=== PATIENT | female | born 1940 | race Caucasian/White ===

== ENCOUNTER 2018-06-17 21:56 | Observation (INO) ==
[2018-06-17] MEDS ORDERED: RESP: Racemic Epinephrine 2.25% 0.5 ML Neb NEB ONE (22:13)
[2018-06-17] MEDS: Sod Chloride 0.9% Inj 1,000 ML IV.CONT SCH (22:31)
--- NOTE | 2018-06-17 22:31 | XR ---
EXAM DATE: 06/17/2018 10:29 PM EST AGE/SEX: 78 years / Female INDICATIONS: . Cough, shortness of breath. CLINICAL DATA: This is the patient's initial encounter. Patient reports that signs and symptoms have been present for 1 week and indicates a pain score of 0/10. MEDICAL/SURGICAL HISTORY: None. None. COMPARISON: No prior exams available for comparison. FINDINGS: PA and lateral views of the chest demonstrate linear densities in the lingula. Right lung clear. Hear t normal in size the cardiomediastinal contours are unremarkable. Osseous structures are intact. CONCLUSION: Lingular subsegmental atelectasis. Electronically signed by: Sanchez Marquez MD Board Certified Radiologist 06/17/2018 10:30 PM EST
[2018-06-17 22:56] LABS: Chloride 105 meq/L (98-107); Potassium 3.8 meq/L (3.5-5.1); Sodium 137 meq/L (136-145)
[2018-06-17] MEDS ORDERED: RESP: Lidocaine PF 4% 5 ML Neb NEB ONE (22:57)
[2018-06-17 22:58] LABS: Blood Urea Nitrogen 14 mg/dL (7-18); Glucose,Random 121 mg/dL (74-106)
[2018-06-17 22:59] LABS: Albumin 3.6 g/dL (3.4-5.0); Anion Gap 6 meq/L (5-15); Carbon Dioxide 26.3 meq/L (21.0-32.0)
[2018-06-17 23:02] LABS: Alanine Aminotransferase 20 U/L (10-53); Aspartate Aminotransferase 20 U/L (15-37)
[2018-06-17 23:03] LABS: Glomerular Filtration Rate 82 mL/min (>89)
[2018-06-17 23:05] LABS: Alkaline Phosphatase 65 U/L (45-117)
[2018-06-17] MEDS ORDERED: Lidocaine 2%/Epinephrine 1:100,000 Inj 20 ML Vial ONE (23:06)
[2018-06-17 23:07] LABS: Troponin I 0.23 ng/mL (0.02-0.05)
[2018-06-17 23:18] LABS: Baso # (Auto) 0.2 th/mm3 (0.0-0.2); Baso % (Auto) 1.6 % (0.0-2.0); Eos # (Auto) 0.4 th/mm3 (0.0-0.4); Hematocrit 39.8 % (35.0-46.0); Hemoglobin 13.4 gm/dL (11.6-15.3); Lymph # (Auto) 2.5 th/mm3 (1.0-4.8); Lymph % (Auto) 21.4 % (9.0-44.0); Mean Corpuscular HGB Conc 33.8 % (32.0-36.0); Mean Corpuscular Hemoglobin 30.1 pg (27.0-34.0); Mean Platelet Volume 8.8 fL (7.0-11.0); Neut # (Auto) 7.8 th/mm3 (1.8-7.7); Platelet Count 377 th/mm3 (150-450); Red Blood Count 4.47 mil/mm3 (4.00-5.30); Red Cell Distribution Width 12.9 % (11.6-17.2); White Blood Count 11.9 th/mm3 (4.0-11.0)
--- NOTE | 2018-06-17 23:41 | ED ---
HPI General Chief Complaint: Respiratory Symptoms Stated Complaint: Cough x thurs Time Seen by Provider: 06/17/18 22:12 Source: patient Mode of arrival: ambulatory Limitations: no limitations History of Present Illness MD Complaint: Reports cough, sore throat and nasal congestion; Denies fever, rhinorrhea and sinus pain Onset (ago): day(s) (5-7) Duration: constant and progressively worsening Severity: similar to previous episodes Severity scale (1-10): 8 Relieving factors: nothing Exacerbating factors: swallowing and speaking Description of mucous: Denies clear, watery, yellow, green, purulent and bloody Able to tolerate fluids by mouth: Yes Context: Reports recent travel; Denies sick contacts, recent dental work and multiple patients with similar complaints Associated symptoms: Reports voice changes (hoarseness), sore throat, cough and shortness of breath; Denies fever, chills, myalgias, diaphoresis, headache, rhinorrhea, nasal congestion, stiff neck, chest pain, abdominal pain, nausea, vomiting, diarrhea, dysuria, rash, epistaxis and ear pain Treatments prior to arrival: Reports acetaminophen Related Data Home Medications Medication Instructions Recorded Confirmed esomeprazole magnesium [Nexium] 20 mg PO DAILY 06/17/18 06/17/18 Allergies Allergy/AdvReac Type Severity Reaction Status Date / Time ampicillin Allergy Intermediate Rash, Verified 06/17/18 22:13 Localized Sulfa (Sulfonamide Allergy Intermediate Vomiting Verified 06/17/18 22:13 Antibiotics) Review of Systems ROS: all other systems reviewed are negative [facility] Medical History Medical History GERD (gastroesophageal reflux disease) (Acute) Surgical History Surgical History History of tubal ligation (Acute) Hx of cholecystectomy (Acute) Hx of tonsillectomy (Acute) Social History Social History Substance History: No History of Abuse Second Hand Smoke Exposure: No Smoking Status: Never smoker How Often Do You Have a Drink Containing Alcohol: 2 to 3 times a week Recent Travel in [facility] within the Last 8 Weeks: Yes Recent Out of Country Travel within the Last 8 Weeks: No Immunization History Tetanus Immunization: Unsure Exam Narrative Exam Narrative: GENERAL: Well-nourished, well-developed patient. No accessory muscle use mild hoarseness intermittent stridor with intermittent seal bark cough. SKIN: Focused skin assessment warm/dry. HEAD: Normocephalic. EYES: No scleral icterus. No injection or drainage. ENT: Mucous membranes moist airway is patent posterior pharyngeal exam no edema mild erythema no exudative change. NECK: Supple, trachea midline. No JVD or lymphadenopathy. CARDIOVASCULAR: Regular rate and rhythm without murmurs, gallops, or rubs. RESPIRATORY: Breath sounds equal bilaterally. No accessory muscle use. GASTROINTESTINAL: Abdomen soft, non-tender, nondistended. MUSCULOSKELETAL: No cyanosis, or edema. BACK: Nontender without obvious deformity. No CVA tenderness. Course Initial Documented Vital Signs Temperature 98.2 F 06/17/18 22:01 Pulse Rate 93 H 06/17/18 22:01 Respiratory Rate 18 06/17/18 22:01 Blood Pressure 148/70 H 06/17/18 22:01 Pulse Oximetry 96 06/17/18 22:01 Last Documented Vital Signs Temperature 98.2 F 06/17/18 22:01 Pulse Rate 100 H 06/18/18 04:33 Respiratory Rate 20 06/18/18 04:33 Blood Pressure 133/55 L 06/18/18 04:33 Pulse Oximetry 98 06/18/18 05:35 Medical Decision Making [facility] Narrative Medical decision making narrative: 78-year-old female with history of reflux esophagitis presents with progressive laryngitis and intermittent stridor with complaint of difficulty with breathing and talking and painful speech since . No fever no chills no nausea no vomiting no noted wheezing. No orthopnea no PND no chest pain no referred jaw back shoulder arm pain. No soft tissue swelling of the neck or tenderness of the anterior neck to palpation no redness of the soft tissue of the neck or jaw. Symptoms have worsened since this morning. Patient is visiting from [place]. Patient will be in the area for 5 weeks. Patient placed on cardiac technician with continuous pulse oximetry IV access obtain specimens collected and sent for resulting chest x-ray PA and lateral ordered identified to have some streaking atelectasis of the lingula and some narrowing of the airway/steeple sign on PA view. Patient administered maintenance IV fluids racemic epinephrine Decadron. Patient slightly improved but remains symptomatic given nebulized 4% lidocaine with improvement. CBC with automated differential found to be in normal range chemistries found to be in normal range; troponin I identified however to be elevated at 0.23. Repeat troponin I ordered along with EKG patient denies any recent chest pain referred jaw shoulder back extremity pain abdominal pain has some anterior throat pain but no referred neck pain. Patient denies hypertension dyslipidemia tobaccoism diabetes or family history of premature onset heart disease. Patient takes no hormone replacement therapy. Patient identified to have normal renal function. CT soft tissue neck ordered EKG: Normal sinus rhythm rate [address] elevation nonspecific T wave inversion septally in V1 V2 no ST segment depression At 11:45 PM after receiving IV fluids IV Decadron nebulized 4% lidocaine and racemic epinephrine and humidified air patient is symptomatically and clinically improved Patient identified to have elevated troponin on repeat as well as 0.22 patient continues to deny any chest pain or shortness of breath except for when she is having her laryngeal spasm and laryngitis. Patient denies personal history of CAD hypertension dyslipidemia tobaccoism diabetes or family history of premature onset heart disease. Patient is willing to stay for observation due to her stridor but does not believe she has anything from a cardiac standpoint. Discussed case with Dr Dickson who follow/trend troponins but does not want to start heparinization and patient is asymptomatic we will repeat elevated troponin patient has received aspirin. Medical Screen Exam Complete: Yes Emergency Medical Condition: Yes Differential Diagnosis Differential Diagnosis: Viral syndrome, laryngitis, tracheitis, abscess, mass, retropharyngeal abscess, laryngospasm Medical Records no prior visits Lab Data Lab results reviewed: Yes I reviewed the patient's lab results. Result diagrams: 06/17/18 22:00 06/17/18 22:00 Lab Results 06/17/18 06/17/18 06/18/18 Range/Units 22:00 22:00 00:45 CBC w Diff Auto diff final WBC 11.9 H (4.0-11.0) th/mm3 RBC 4.47 (4.00-5.30) mil/mm3 Hgb 13.4 (11.6-15.3) gm/dL Hct 39.8 (35.0-46.0) % MCV 89.0 (80.0-100.0) fL MCH 30.1 (27.0-34.0) pg MCHC 33.8 (32.0-36.0) % RDW 12.9 (11.6-17.2) % Plt Count 377 (150-450) th/mm3 MPV 8.8 (7.0-11.0) fL Neut % (Auto) 66.0 (16.0-70.0) % Lymph % (Auto) 21.4 (9.0-44.0) % [place] % (Auto) 8.0 (0.0-8.0) % Eos % (Auto) 3.0 (0.0-4.0) % Baso % (Auto) 1.6 (0.0-2.0) % Neut # (Auto) 7.8 H (1.8-7.7) th/mm3 Lymph # (Auto) 2.5 (1.0-4.8) th/mm3 [place] # (Auto) 1.0 H (0.0-0.9) th/mm3 Eos # (Auto) 0.4 (0.0-0.4) th/mm3 Baso # (Auto) 0.2 (0.0-0.2) th/mm3 WBC Differential . Differential Comment . Sodium 137 (136-145) meq/L Potassium 3.8 (3.5-5.1) meq/L Chloride 105 (98-107) meq/L Carbon Dioxide 26.3 (21.0-32.0) meq/L Anion Gap 6 (5-15) meq/L BUN 14 (7-18) mg/dL Creatinine 0.69 (0.50-1.00) mg/dL Estimated GFR 82 L (>89) mL/min Random Glucose 121 H (74-106) mg/dL Calcium 9.0 (8.5-10.1) mg/dL Total Bilirubin 0.4 (0.2-1.0) mg/dL AST 20 (15-37) U/L ALT 20 (10-53) U/L Alkaline Phosphatase 65 (45-117) U/L Troponin I 0.23 H 0.22 H (0.02-0.05) ng/mL Total Protein 8.0 (6.4-8.2) g/dL Albumin 3.6 (3.4-5.0) g/dL Imaging Data Radiologist's impression: Chest X-Ray 06/17/18 22:13 CONCLUSION: Lingular subsegmental atelectasis. Soft Tissue Neck CT 06/18/18 00:06 CONCLUSION: 1. Sinus disease. 2. 1.1 cm right thyroid mass. ECG Data EKG Prior to Arrival: No Attestation: I personally reviewed and interpreted this ECG as follows: (EKG: Normal sinus rhythm rate [address] elevation or injury pattern nonspecific T wave inversion septally in V1 V2 without ST segment depression normal axis and intervals) Discharge Plan Discharge Disposition Patient Disposition: ED Admit(ED Internal Use Only) Discharge Condition Condition: Stable Discharge Order Discharge Orders: ED Use Only Admit Order (Routine); Ordered 06/18/18 Ordered By: Jailene Bruno Discharge Details Diagnosis: Laryngitis, acute spasmodic, Stridor, Elevated troponin I level Physicians Team ED Provider: Jailene Bruno Primary Care Provider: Primary Care Earnestine Harris Attending Provider: Jaren Pena Discharge Interventions Interventions: ED Discharge Assessment Last Done: 06/18/18 05:01 Status ED Status: Admitted Observation Patient
--- NOTE | 2018-06-18 01:59 | CT ---
EXAM DATE: 06/18/2018 1:49 AM EST AGE/SEX: 78 years / Female INDICATIONS: Evaluate for mass. CLINICAL DATA: This is the patient's initial encounter. Patient reports that signs and symptoms have been present for 1 day and indicates a pain score of 0/10. MEDICAL/SURGICAL HISTORY: Gastroesophageal reflux disease. Tonsillectomy. RADIATION DOSE: 9.91 CTDI (mGy) COMPARISON: No prior exams available for comparison. TECHNIQUE: Helical acquisition was performed using a multirow detector CT scanner during the adminis tration of 100 ml Omnipaque 350 (iohexol) nonionic water-soluble contrast as a single exam dose. Us ing automated exposure control and adjustment of the mA and/or kV according to patient size, radiatio n dose was kept as low as reasonably achievable to obtain optimal diagnostic quality images. DICOM f ormat image data is available electronically for review and comparison. FINDINGS: Nasopharynx: The nasopharyngeal airway has a normal configuration. No mucosal thickening or mass is seen. Oropharynx: The intrinsic muscles of the tongue are symmetric. The tonsillar pillars are intact. T he prevertebral soft tissues are not thickened. Larynx: The supraglottic, glottic, and infraglottic structures are intact. Parapharyngeal: The parapharyngeal space is intact. Salivary Glands: The parotid and submandibular glands are intact. Lymph Nodes: No enlarged or necrotic-appearing nodes. Normal-sized nodes are seen throughout the nec k. Thyroid: There is a 1.1 cm low-density mass at the right lobe of the thyroid. Bones: Unremarkable. Sinuses: There is bilateral frontal, and bilateral left greater than right posterior ethmoid sinus, and mild bilateral sphenoid sinus disease. The maxillary sinuses appear fairly clear. CONCLUSION: 1. Sinus disease. 2. 1.1 cm right thyroid mass. Electronically signed by: Kashmir Sen MD Board Certified Radiologist 06/18/2018 1:58 AM EST
[2018-06-18] MEDS ORDERED: Bisacodyl 10 MG Supp RECTAL PRN (02:34)
[2018-06-18] MEDS ORDERED: Acetaminophen 325 MG Tablet PO PRN ×2 (02:34→15:05)
[2018-06-18] MEDS: Enoxaparin Inj 40 MG/0.4 ML Syringe SQ SCH (04:27)
[2018-06-18] MEDS: Senna/Docusate Sodium 8.6/50 MG Tablet PO SCH ×2 (08:51→21:07)
[2018-06-18] MEDS: Sod Chloride 0.9% Inj 1,000 ML IV.CONT SCH ×2 (10:33→18:54)
[2018-06-18] MEDS ORDERED: RESP: Racemic Epinephrine 2.25% 0.5 ML Neb NEB ONE (11:00)
--- NOTE | 2018-06-18 12:46 | ECG ---
Date Performed: 06/17/2018 Time Performed: 23:38:25 PTAGE: 78 years EKG: Sinus rhythm NONSPECIFIC T-WAVE ABNORMALITY ABNORMAL ECG NO PREVIOUS TRACING DOCTOR: Anabell Taylor Interpretating Date/Time 06/18/2018 12:45:01
--- NOTE | 2018-06-18 12:54 | P.HPIM ---
History of Present Illness Primary Care Physician: No Primary Care Physician History of Present Illness: 78-year-old female with a history of GERD who presents with a 2-day history of worsening intermittent will be breathing in. History is provided by the patient her condition is exacerbated by talking. history is limited by being obtained through writing and whispering. Patient says that she had an upper respiratory illness which was getting better, however she subsequently got a cough and episodes of difficulty breathing in. She reports she has had similar symptoms in the past. She denies any chest pain. She denies any shortness of breath when she is not having these episodes. She denies any fevers or chills, and indicates that she has gotten better from her previous cold Review of Systems All other systems reviewed negative except as stated in [facility]PI [facility] - History History Provided By: Patient - Medical History Medical History: Medical History (Last Reviewed 06/18/18 @ 12:47 by Jaren Pena MD) GERD (gastroesophageal reflux disease) - Surgical History Surgical History: Surgical History (Last Reviewed 06/18/18 @ 12:47 by Jaren Pena MD) History of tubal ligation Hx of cholecystectomy Hx of tonsillectomy - Family History Family History: Family History (Last Updated 06/18/18 @ 12:47 by Jaren Pena MD) Other Family history unobtainable due to patient's condition - Tobacco History Second Hand Smoke Exposure: No Tobacco Use In Past 30 Days: No Smoking Status: Never smoker - Alcohol History How Often Do You Have a Drink Containing Alcohol: 2 to 3 times a week - Substance Use History Substance History: No History of Abuse - Travel History Recent Travel in the [place] Within the Last 8 Weeks: Yes Recent Travel Out of the Country Within the Last 8 Weeks: No - Immunization History Tetanus Immunization: Unsure Medications and Allergies Active Medications: Active Medications Acetaminophen (Tylenol) 650 mg PO Q4H PRN PRN Reason: Temp > 100.4 Al Hydroxide/Mg Hydroxide (Milk Of Magnesia Liq) 30 ml PO Q12H PRN PRN Reason: Mild Constipation Albuterol (Duoneb Neb (Prn)) 1 ampul NEB Q4HR NEB PRN PRN Reason: ALLERGIC REACTION Bisacodyl (Dulcolax Supp) 10 mg RECTAL DAILY PRN PRN Reason: SEVERE CONSITIPATION Enoxaparin Sodium (Lovenox Inj) 40 mg SQ Q24H [facility] Last Admin: 06/18/18 04:27 Dose: Not Given Sodium Chloride (Ns Inj) 1,000 mls @ 100 mls/hr IV.CONT .Q10H [facility] Last Admin: 06/18/18 10:33 Dose: 100 mls/hr Lactulose (Lactulose Liq) 30 ml PO DAILY PRN PRN Reason: SEVERE CONSITIPATION Ondansetron HCl (Zofran Inj) 4 mg IV.PUSH Q6H PRN PRN Reason: NAUSEA OR VOMITING Senna/Docusate Sodium (Clarisa-Colace) 1 tab PO BID [facility] Last Admin: 06/18/18 08:51 Dose: 1 tab Sennosides (Senokot) 17.2 mg PO Q12H PRN PRN Reason: Moderate Constipation Sodium Chloride (Ns Flush) 2 ml IV.FLUSH BID [facility] Last Admin: 06/18/18 08:51 Dose: Not Given Sodium Chloride (Ns Flush) 2 ml IV.FLUSH PRN PRN PRN Reason: FLUSH AFTER USING IV ACCESS Allergies Allergy/AdvReac Type Severity Reaction Status Date / Time ampicillin Allergy Intermediate Rash, Verified 06/17/18 22:13 Localized Sulfa (Sulfonamide Allergy Intermediate Vomiting Verified 06/17/18 22:13 Antibiotics) Home Medications Medication Instructions Recorded Confirmed Type esomeprazole magnesium [Nexium] 20 mg PO DAILY 06/17/18 06/17/18 History Exam Vital signs: Vital Signs 06/17/18 22:01 06/17/18 22:30 06/17/18 22:37 Temperature 98.2 F Pulse Rate 93 H 79 97 H Respiratory Rate 18 18 20 Blood Pressure 148/70 H Pulse Oximetry 96 98 06/17/18 22:52 06/17/18 23:11 06/18/18 00:24 Temperature Pulse Rate 88 99 H 98 H Respiratory Rate 18 20 Blood Pressure 130/60 Pulse Oximetry 97 06/18/18 02:32 06/18/18 04:33 06/18/18 05:35 Temperature Pulse Rate 104 H 100 H Respiratory Rate 20 20 Blood Pressure 143/66 H 133/55 L Pulse Oximetry 97 98 98 06/18/18 06:01 06/18/18 08:00 06/18/18 11:34 Temperature 96.6 F L 97.8 F Pulse Rate 92 H 103 H 91 H Respiratory Rate 18 18 Blood Pressure 136/66 138/71 Pulse Oximetry 93 L 95 Intake & Output 06/17/18 06/18/18 06/18/18 18:59 06:59 18:59 Intake Total 700 / 700 740 / 740 Output Total 200 / 200 Balance 700 / 700 540 / 540 Weight 54.6 kg Intake: IV 700 / 700 300 / 300 NS Inj 1,000 ML @ 100 mls/hr IV 700 / 700 300 / 300 .CONT .Q10H NATALIE Rx#:[id number] Oral 440 / 440 Output: Urine 200 / 200 Other: Weight On Admission 53.3 kg Narrative: GENERAL: Patient sitting up in bed. Appears comfortable. Patient initially talking without difficulty, however shortly after speaking has an episode where she appears panicked and with difficulty breathing in. This resolves however, as this is exacerbated by her talking. SKIN: Warm and dry. HEAD: Atraumatic. Normocephalic. EYES: Pupils equal and round. No scleral icterus. No injection or drainage. ENT: No nasal bleeding or discharge. Mucous membranes pink and moist. NECK: Trachea midline. No JVD. CARDIOVASCULAR: Regular rate and rhythm. RESPIRATORY: No accessory muscle use. Clear to auscultation. Breath sounds equal bilaterally. Patient with audible upper airway sounds when she has her episodes of laryngeal spasm versus vocal cord dysfunction. GASTROINTESTINAL: Abdomen soft, non-tender, nondistended. Hepatic and splenic margins not palpable. MUSCULOSKELETAL: Extremities without clubbing, cyanosis, or edema. No obvious deformities. NEUROLOGICAL: Awake and alert. No obvious cranial nerve deficits. Motor grossly within normal limits. Five out of 5 muscle strength in the arms and legs. Normal speech. PSYCHIATRIC: Appropriate mood and affect; insight and judgment normal. Results - Labs CBC & Chem 7: 06/17/18 22:00 06/17/18 22:00 Labs: Short CBC 06/17/18 Range/Units 22:00 WBC 11.9 H (4.0-11.0) th/mm3 Hgb 13.4 (11.6-15.3) gm/dL Hct 39.8 (35.0-46.0) % Plt Count 377 (150-450) th/mm3 BMP 06/17/18 22:00 Sodium 137 Potassium 3.8 Chloride 105 Carbon Dioxide 26.3 BUN 14 Creatinine 0.69 Calcium 9.0 Cardiac Enzymes 06/17/18 06/18/18 06/18/18 Range/Units 22:00 00:45 08:02 Troponin I 0.23 H 0.22 H 0.09 H D (0.02-0.05) ng/mL Liver Function 06/17/18 Range/Units 22:00 Total Bilirubin 0.4 (0.2-1.0) mg/dL AST 20 (15-37) U/L ALT 20 (10-53) U/L Alkaline Phosphatase 65 (45-117) U/L Albumin 3.6 (3.4-5.0) g/dL - Imaging Impressions Chest X-Ray 06/17/18 22:13 CONCLUSION: Lingular subsegmental atelectasis. Soft Tissue Neck CT 06/18/18 00:06 CONCLUSION: 1. Sinus disease. 2. 1.1 cm right thyroid mass. Caprini VTE Risk Assessment Caprini VTE Risk Assessment: Moderate/High Risk (score >= 2) Caprini Risk Assessment Model: Point Value = 1 Point Value = 2 Point Value = 3 Point Value = 5 Age 41-60 Minor surgery BMI > 25 kg/m2 Swollen legs Varicose veins or History of unexplained or recurrent spontaneous Oral contraceptives or hormone replacement Sepsis (< 1 month) Serious lung disease, including pneumonia (< 1 month) Abnormal pulmonary function Acute myocardial infarction Congestive heart failure (< 1 month) History of inflammatory bowel disease Medical patient at bed rest Age 61-74 Arthroscopic surgery Major open surgery (> 45 min) Laparoscopic surgery (> 45 min) Malignancy Confined to bed (> 72 hours) Immobilizing plaster cast Central venous access Age >= 75 History of VTE Family history of VTE Factor V Leiden Prothrombin [id number] Lupus anticoagulant Anticardiolipin antibodies Elevated serum homocysteine Heparin-induced thrombocytopenia Other congenital or acquired thrombophilia Stroke (< 1 month) Elective arthroplasty Hip, pelvis, or leg fracture Acute spinal cord injury (< 1 month) Prophylaxis Regimen: Total Risk Factor Score Risk Level Prophylaxis Regimen 0-1 Low Early ambulation 2 Moderate Order ONE of the following: *Sequential Compression Device (SCD) *Heparin 5000 units SQ BID 3-4 Higher Order ONE of the following medications: *Heparin 5000 units SQ TID *Enoxaparin/Lovenox 40 mg SQ daily (WT < 150 kg, CrCl > 30 mL/min) *Enoxaparin/Lovenox 30 mg SQ daily (WT < 150 kg, CrCl > 10-29 mL/min) *Enoxaparin/Lovenox 30 mg SQ BID (WT < 150 kg, CrCl > 30 mL/min) AND/OR *Sequential Compression Device (SCD) 5 or more Highest Order ONE of the following medications: *Heparin 5000 units SQ TID (Preferred with Epidurals) *Enoxaparin/Lovenox 40 mg SQ daily (WT < 150 kg, CrCl > 30 mL/min) *Enoxaparin/Lovenox 30 mg SQ daily (WT < 150 kg, CrCl > 10-29 mL/min) *Enoxaparin/Lovenox 30 mg SQ BID (WT < 150 kg, CrCl > 30 mL/min) AND *Sequential Compression Device (SCD) Assessment and Plan - Plan //Suspected laryngeal spasm versus vocal cord dysfunction -Following recent upper airway infection which was resolved. -Exacerbated by coughing and talking. -CT with incidental thyroid nodule, however no focal cord or laryngeal inflammation noted on CT scan. -Improved with IV steroids and racemic epinephrine neb. -We will also give IV PPI as reflux can exacerbate this. -This is life-threatening, as patient is already had troponin elevation which is demand related secondary to near suffocation. -We will start on Singulair, Claritin, Levaquin. Consult to ENT. Close monitoring. Appreciate assistance. //Troponin elevation up to 0.23. -This is likely demand related secondary to patient's episodes of laryngeal spasm. EKG with nonspecific T wave abnormality. Patient denies any chest pain. //Incidental finding of 1.1 cm thyroid nodule on imaging. This will need to be followed by ENT as outpatient. Discussed Condition With: Patient, nurse. Call back pending from ENT. H&P: Quality - VTE Deep Vein Thrombosis/Pulmonary Embolism Present on Admission: No
[2018-06-18] MEDS ORDERED: Montelukast 10 MG Tablet PO ONE (13:00)
[2018-06-18] MEDS ORDERED: Pantoprazole Inj 40 MG Vial IV.PUSH SCH (13:00)
[2018-06-18] MEDS: Loratadine 10 MG Tablet PO SCH (13:37)
[2018-06-18] MEDS: Benzocaine/Menthol 15 MG/3.6 MG SF Lozenge BUCCAL PRN (13:38)
[2018-06-18] MEDS: MethylPREDNISolone Sod Succinate Inj 40 MG/ML Vial IV.PUSH SCH ×2 (13:58→21:07)
[2018-06-18] MEDS ORDERED: Dextrose 50% in Water 50 ML Vial IV.PUSH PRN (15:03)
[2018-06-18] MEDS ORDERED: RESP: Racemic Epinephrine 2.25% 0.5 ML Neb NEB PRN (15:04)
[2018-06-18 15:11] LABS: ABG PCO2 36 mmHg (38-42); ABG PO2 65 mmHg (61-120)
--- NOTE | 2018-06-18 15:23 | P.CONCC ---
History of Present Illness Service: Critical care medicine Consult date: 06/18/18 Requesting Physician: Jaren Pena Reason for Consult: Stridor Primary Care Provider: No Primary Care Physician Chief Complaint: Shortness of breath History of Present Illness: This is a 78-year-old female. Admission 06/17/2018. Date of consultation 06/18/2018. Past medical history includes gastroesophageal disease. Patient states she had episodic episodes of "stridor" since 1958. These usually preclude or during an upper respiratory infection process. According to her, these usually resolve after one episode in do not continue.. She presents with a 2-day history of difficulty breathing. Upon admission denied any chest pain. During his admission, patient initially received dexamethasone 8 mg x1 and racemic epinephrine and was started on pulmonary toilet. Since admission, patient received 2 racemic epinephrine aerosols and additional dose of dexamethasone 8 mg x1. She is feeling fine but during these episodes she states she has difficulty breathing and. CT of the neck was performed which was essentially negative except for a 1.1 cm thyroid mass. Upon my examination , patient was phonating in a soft voice but adequate. Typically she has a sore throat. Denies difficulty breathing currently. Due to ongoing airway issue we are going to transfer the main campus for observation Review of Systems Constitutional: Reports body ache(s), Reports fatigue, Reports fever(s), Denies anorexia, Denies chills, Denies headache(s) Eyes: Denies blurry vision, Denies bulging eyes, Denies floaters, Denies irritation Ears, Nose, Mouth, and Throat: Reports post nasal drip, Reports sore throat, Reports throat swelling, Denies abnormal hearing, Denies bleeding gums, Denies dizziness, Denies lip swelling, Denies mouth lesions, Denies nasal obstruction, Denies pain with swallowing, Denies poor balance, Denies sinus pressure, Denies tongue swelling Cardiovascular: Denies chest pain, Denies chest pain at rest Respiratory: Reports cough, Denies change in phlegm color, Denies chest congestion, Denies coughing up blood, Denies pain on inspiration Gastrointestinal: Denies abdominal pain, Denies bloating, Denies nausea, Denies vomiting Genitourinary: Denies urinary urgency, Denies vaginal discharge Musculoskeletal: Denies back pain, Denies stiffness Skin/Breast: Denies redness, Denies rash Neurologic: Denies lack of coordination, Denies tremor(s) Psychiatric: Reports anxiety, Denies confusion, Denies depression Endocrine: Denies cold intolerance, Denies excessive sweating Hematologic/Lymphatic: Denies easy bleeding Allergic/Immunologic: Denies GI upset with certain foods PMFSH - History History Provided By: Patient - Medical History Medical History: Medical History (Last Reviewed 06/18/18 @ 15:18 by Yoel Ruby MD) GERD (gastroesophageal reflux disease) - Surgical History Surgical History: Surgical History (Last Reviewed 06/18/18 @ 15:18 by Yoel Ruby MD) History of tubal ligation Hx of cholecystectomy Hx of tonsillectomy - Family History Family History: Family History (Last Updated 06/18/18 @ 15:18 by Yoel Ruby MD) Other Family history unremarkable - Tobacco History Second Hand Smoke Exposure: No Tobacco Use In Past 30 Days: No Smoking Status: Never smoker - Alcohol History How Often Do You Have a Drink Containing Alcohol: 2 to 3 times a week - Substance Use History Substance History: No History of Abuse - Travel History Recent Travel in the [place] Within the Last 8 Weeks: Yes Recent Travel Out of the Country Within the Last 8 Weeks: No - Immunization History Tetanus Immunization: Unsure Medications and Allergies Active Medications: Active Medications Acetaminophen (Tylenol) 650 mg PO Q6H PRN PRN Reason: Temp > 100.4 Al Hydroxide/Mg Hydroxide (Milk Of Magndixon Liq) 30 ml PO Q12H PRN PRN Reason: Mild Constipation Albuterol (Albuterol Neb (Prn)) 2.5 mg NEB Q2HR NEB PRN PRN Reason: DYSPNEA Albuterol (Duoneb Neb (Prn)) 1 ampul NEB Q4HR NEB NATALIE Benzocaine/Menthol (Cepacol Max Strength) 1 lozenge BUCCAL Q2H PRN PRN Reason: COUGH Last Admin: 06/18/18 13:38 Dose: 1 lozenge Bisacodyl (Dulcolax Supp) 10 mg RECTAL DAILY PRN PRN Reason: SEVERE CONSITIPATION Dextrose (D50w Vial) 50 ml IV.PUSH UNSCH PRN PRN Reason: PER HYPOGLYCEMIA PROTOCOL Enoxaparin Sodium (Lovenox Inj) 40 mg SQ Q24H NATALIE Last Admin: 06/18/18 04:27 Dose: Not Given Epinephrine (Racepinephrine 2.25% Neb) 0.5 ml NEB Q3H PRN PRN Reason: STRIDOR Famotidine (Pepcid Pf Inj) 20 mg IV.PUSH Q12HR NATALIE Glucagon (Glucagon Inj) 1 mg OTHER PRN PRN PRN Reason: for Hypoglycemia Protocol Sodium Chloride (Ns Inj) 1,000 mls @ 100 mls/hr IV.CONT .Q10H [facility] Last Admin: 06/18/18 10:33 Dose: 100 mls/hr Levofloxacin/Dextrose (Levaquin 750 Mg Premix Inj) 150 mls @ 100 mls/hr IV.SIG Q24H [facility] Last Admin: 06/18/18 13:37 Dose: 100 mls/hr Cefepime HCl 2,000 mg/ Sodium (Chloride) 100 mls @ 200 mls/hr IV.SIG Q8H [facility] Last Admin: 06/18/18 14:05 Dose: 200 mls/hr Insulin Aspart (Novolog Insulin Correctional Sugar Inj) 0 unit SQ Q6HR [facility]; Protocol Lactulose (Lactulose Liq) 30 ml PO DAILY PRN PRN Reason: SEVERE CONSITIPATION Loratadine (Claritin) 10 mg PO DAILY [facility] Last Admin: 06/18/18 13:37 Dose: 10 mg Methylprednisolone Sodium Succinate (Solumedrol Inj) 40 mg IV.PUSH Q8HR [facility] Last Admin: 06/18/18 13:58 Dose: 40 mg Ondansetron HCl (Zofran Inj) 4 mg IV.PUSH Q6H PRN PRN Reason: NAUSEA OR VOMITING Senna/Docusate Sodium (Clarisa-Colace) 1 tab PO BID [facility] Last Admin: 06/18/18 08:51 Dose: 1 tab Sennosides (Senokot) 17.2 mg PO Q12H PRN PRN Reason: Moderate Constipation Sodium Chloride (Ns Flush) 2 ml IV.FLUSH BID [facility] Last Admin: 06/18/18 08:51 Dose: Not Given Sodium Chloride (Ns Flush) 2 ml IV.FLUSH PRN PRN PRN Reason: FLUSH AFTER USING IV ACCESS Allergies Allergy/AdvReac Type Severity Reaction Status Date / Time ampicillin Allergy Intermediate Rash, Verified 06/17/18 22:13 Localized Sulfa (Sulfonamide Allergy Intermediate Vomiting Verified 06/17/18 22:13 Antibiotics) Home Medications Medication Instructions Recorded Confirmed Type esomeprazole magnesium [Nexium] 20 mg PO DAILY 06/17/18 06/17/18 History Physical Exam Vital signs: Vital Signs 06/17/18 22:01 06/17/18 22:30 06/17/18 22:37 Temperature 98.2 F Pulse Rate 93 H 79 97 H Respiratory Rate 18 18 20 Blood Pressure 148/70 H Pulse Oximetry 96 98 06/17/18 22:52 06/17/18 23:11 06/18/18 00:24 Temperature Pulse Rate 88 99 H 98 H Respiratory Rate 18 20 Blood Pressure 130/60 Pulse Oximetry 97 06/18/18 02:32 06/18/18 04:33 06/18/18 05:35 Temperature Pulse Rate 104 H 100 H Respiratory Rate 20 20 Blood Pressure 143/66 H 133/55 L Pulse Oximetry 97 98 98 06/18/18 06:01 06/18/18 08:00 06/18/18 11:34 Temperature 96.6 F L 97.8 F Pulse Rate 92 H 103 H 91 H Respiratory Rate 18 22 18 Blood Pressure 136/66 138/71 Pulse Oximetry 93 L 95 06/18/18 12:00 06/18/18 13:33 06/18/18 13:50 Temperature 97.1 F L Pulse Rate 92 H 89 Respiratory Rate 21 18 Blood Pressure Pulse Oximetry 95 Intake & Output 06/17/18 06/18/18 06/18/18 18:59 06:59 18:59 Intake Total 700 / 700 980 / 980 Output Total 400 / 400 Balance 700 / 700 580 / 580 Weight 54.6 kg Intake: IV 700 / 700 300 / 300 NS Inj 1,000 ML @ 100 mls/hr IV 700 / 700 300 / 300 .CONT .Q10H [facility] Rx#:[id number] Oral 680 / 680 Output: Urine 400 / 400 Other: Weight On Admission 53.3 kg - Constitutional no acute distress - Routine HEENT Exam Head: Present: normocephalic, atraumatic Eye: Present: EOMI, PERRL, normal accommodation ENT: Present: mucous membranes moist. Absent: sinus tenderness - Routine Neck Exam Present: supple, full ROM, thyromegaly, trachea midline. Absent: carotid bruit , tenderness, swelling, tracheal deviation - Routine Respiratory Exam Present: CTA bilaterally. Absent: accessory muscle use - Routine Cardiovascular Exam Present: RRR, S1, S2. Absent: murmur - Routine Abdominal Exam Present: soft, normoactive bowel sounds - Routine Exam Patient deferred: external exam, groin exam, perineal exam - Routine Extremities Exam Absent: cyanosis, clubbing, edema - Routine Skin Exam Present: intact - Routine Neurological Exam Present: alert, oriented X3, CN II-XII intact. Absent: sensory deficit, motor deficit - Detailed Neurological Exam: Coma Scale Eye Opening: Spontaneous Verbal Response: Oriented Motor Response: Obey commands Alan Coma Scale Total: 15 - Routine Psychiatric Exam Present: normal affect Septic Shock Reassessment Septic shock perfusion: reassessment completed Assessment and Plan - Assessment and Plan Plan: Neuro/Psych: Acetaminophen 650 p.o. every 6 hours as needed fever Hydrocodone/acetaminophen 5/325 1 tablet every 4 hours as needed 1-5 Morphine sulfate 2 mg IV every 2 hours as needed pain 6 - 10 CV: Elevated troponin Will start on aspirin 81 mg daily. 2D echocardiogram ordered. Noted troponin is downward trending. Resp: Stridor Sore throat Chest x-ray revealed bilateral lower lobe atelectasis CT neck revealed right thyroid mass 1.1 cm otherwise negative. ENT evaluation Continues methylprednisolone succinate 40 mg IV every 12 hours Patient has scheduled loratadine 10 mg daily GI: Gastro esophageal reflux disease On omeprazole 20 mg daily home. We will place on famotidine 20 mg IV twice daily here Clear liquid diet Docusate sodium/senna 1 tablet twice daily for bowel regimen : No indication for Villareal catheter Endo: 1.1 cm thyroid mass Check TSH/free T4 Sliding scale insulin with Accu-Cheks to maintain euglycemia every 6 hours while on steroids Renal: Creatinine currently within normal limits Monitor urine output Accurate I's and O's Heme: Leukocytosis No indication for transfusion of blood products at this time. Monitor CBC daily. Follow trends. ID: URI Strep a negative Check respiratory viral panel Currently on levofloxacin FEN: Replace electrolytes as clinically indicated MSK: PT evaluate and treat Access -Utilize peripheral IV. Central line if indicated Prophylaxis -GI -famotidine -DVT -SCD/enoxaparin Level 3 consult. Due to airway issues will transfer to [facility] for further closer observation. ENT consult noted. Await recommendations.
[2018-06-18] MEDS ORDERED: Magnesium Sulfate Inj 2 GM in Sodium Chlor 0.9% Inj 96 ML IV.SIG PRN (15:27)
[2018-06-18] MEDS ORDERED: Potassium Phosphate Inj 30 MMOL in Sodium Chlor 0.9% Inj 250 ML IV.SIG PRN (15:27)
[2018-06-18] MEDS ORDERED: Sodium Phosphate Inj 30 MMOL in Sodium Chlor 0.9% Inj 250 ML IV.SIG PRN (15:27)
[2018-06-18] MEDS ORDERED: Magnesium Sulfate Inj 4 GM in Sodium Chlor 0.9% Inj 92 ML IV.SIG PRN (15:27)
[2018-06-18] MEDS ORDERED: Potassium Chloride 25 MEQ Effervescent Tablet PO PRN (15:27)
[2018-06-18] MEDS ORDERED: Magnesium Oxide 400 MG Tablet PO PRN (15:27)
[2018-06-18] MEDS ORDERED: Potassium Chlor 20 mEq Premix 20 MEQ/100 ML PIGGYBACK IV.SIG PRN ×2 (15:27)
[2018-06-18] MEDS ORDERED: Potassium Chlor 40 mEq Premix 40 MEQ/100 ML PIGGYBACK IV.SIG PRN ×2 (15:27)
[2018-06-18] MEDS ORDERED: Potassium Phosphate 500 MG Soluble Tablet PO PRN ×2 (15:27)
[2018-06-18 15:54] LABS: Thyroid Stimulating Hormone 0.396 uIU/mL (0.358-3.740)
[2018-06-18 17:47] LABS: Free T4 (Free Thyroxine) 0.96 ng/dL (0.76-1.46)
[2018-06-18] MEDS: Insulin NovoLOG Aspart Correctional Sugar Inj SQ SCH (18:51)
[2018-06-18] MEDS: Famotidine PF Inj 20 MG/2 ML Vial IV.PUSH SCH (21:06)
[2018-06-19] MEDS: Insulin NovoLOG Aspart Correctional Sugar Inj SQ SCH ×4 (00:52→17:39)
[2018-06-19] MEDS: Enoxaparin Inj 40 MG/0.4 ML Syringe SQ SCH (02:45)
[2018-06-19 03:49] LABS: Baso % (Auto) 0.2 % (0.0-2.0); Hematocrit 39.6 % (35.0-46.0); Hemoglobin 13.4 gm/dL (11.6-15.3); Lymph # (Auto) 1.2 th/mm3 (1.0-4.8); Lymph % (Auto) 8.4 % (9.0-44.0); Mean Corpuscular HGB Conc 33.9 % (32.0-36.0); Mean Corpuscular Hemoglobin 30.9 pg (27.0-34.0); Mean Corpuscular Volume 91.2 fL (80.0-100.0); Mean Platelet Volume 8.2 fL (7.0-11.0); Mono # (Auto) 0.6 th/mm3 (0.0-0.9); Mono % (Auto) 4.3 % (0.0-8.0); Neut # (Auto) 12.5 th/mm3 (1.8-7.7); Neut % (Auto) 87.1 % (16.0-70.0); Platelet Count 363 th/mm3 (150-450); Red Blood Count 4.34 mil/mm3 (4.00-5.30); Red Cell Distribution Width 14.1 % (11.6-17.2); White Blood Count 14.4 th/mm3 (4.0-11.0)
[2018-06-19 03:59] LABS: Activated Partial Thrombo Time 27.3 sec (23.4-31.7); Prothrombin Time 10.2 sec (9.8-11.6)
[2018-06-19 04:20] LABS: Anion Gap 9 meq/L (5-15); Blood Urea Nitrogen 14 mg/dL (7-18); Calcium 8.6 mg/dL (8.5-10.1); Carbon Dioxide 22.9 meq/L (21.0-32.0); Chloride 107 meq/L (98-107); Glomerular Filtration Rate Greater Than 89 mL/min (>89); Glucose,Random 141 mg/dL (74-106); Magnesium 2.1 mg/dL (1.5-2.5); Phosphorus 2.5 mg/dL (2.5-4.9); Potassium 3.6 meq/L (3.5-5.1); Sodium 139 meq/L (136-145)
[2018-06-19] MEDS: Sod Chloride 0.9% Inj 1,000 ML IV.CONT SCH ×2 (04:20→14:26)
--- NOTE | 2018-06-19 04:44 | XR ---
EXAM DATE: 06/19/2018 4:29 AM EST AGE/SEX: 78 years / Female INDICATIONS: Respiratory failure. CLINICAL DATA: This is the patient's subsequent encounter. Patient reports that signs and symptoms h ave been present for 3 days and indicates a pain score of Nonresponsive. MEDICAL/SURGICAL HISTORY: None. None. COMPARISON: None. FINDINGS: A single AP view of the chest demonstrates the lungs to be symmetrically aerated without evidence of mass, infiltrate or effusion. The cardiomediastinal contours are unremarkable. Osseous structures a re intact. CONCLUSION: No acute cardiopulmonary disease. Electronically signed by: Jonathon Parrish MD Board Certified Radiologist 06/19/2018 4:43 AM EST
[2018-06-19] MEDS: MethylPREDNISolone Sod Succinate Inj 40 MG/ML Vial IV.PUSH SCH (05:34)
--- NOTE | 2018-06-19 08:26 | P.PNCC ---
Subjective Subjective Remarks/Hospital Course: This is a 78-year-old female. Admission 06/17/2018. Date of consultation 06/18/2018. Past medical history includes gastroesophageal disease. Patient states she had episodic episodes of "stridor" since 1958. These usually preclude or during an upper respiratory infection process. According to her, these usually resolve after one episode in do not continue.. She presents with a 2-day history of difficulty breathing. Upon admission denied any chest pain. During his admission, patient initially received dexamethasone 8 mg x1 and racemic epinephrine and was started on pulmonary toilet. Since admission, patient received 2 racemic epinephrine aerosols and additional dose of dexamethasone 8 mg x1. She is feeling fine but during these episodes she states she has difficulty breathing and. CT of the neck was performed which was essentially negative except for a 1.1 cm thyroid mass. Upon my examination , patient was phonating in a soft voice but adequate. Typically she has a sore throat. Denies difficulty breathing currently. Due to ongoing airway issue we are going to transfer the main campus for observation Subjective 06/19: 2 episodes of "choking" overnight. She awoke with these episodes. Patient 's voice is much improved. There is no muffling. He does not soft. There is no stridor on auscultation on deep expiration. Her lungs are essentially clear. Objective Vital Signs / I&O: Vital Signs 06/18/18 10:56 06/18/18 11:00 06/18/18 11:34 Temperature Pulse Rate 86 83 91 H Respiratory Rate 18 Blood Pressure Pulse Oximetry 06/18/18 12:00 06/18/18 13:00 06/18/18 13:33 Temperature 97.1 F L Pulse Rate 84 89 89 Respiratory Rate 21 18 Blood Pressure Pulse Oximetry 06/18/18 13:50 06/18/18 14:00 06/18/18 15:00 Temperature Pulse Rate 129 H 101 H Respiratory Rate Blood Pressure Pulse Oximetry 95 06/18/18 16:00 06/18/18 16:35 06/18/18 17:00 Temperature 98.5 F Pulse Rate 88 111 H 103 H Respiratory Rate 21 Blood Pressure 136/63 Pulse Oximetry 95 06/18/18 17:56 06/18/18 18:37 06/18/18 18:38 Temperature Pulse Rate 123 H 99 H Respiratory Rate 18 Blood Pressure 139/71 Pulse Oximetry 06/18/18 19:00 06/18/18 20:00 06/18/18 21:00 Temperature 98.3 F Pulse Rate 93 H 71 Respiratory Rate 25 H 22 Blood Pressure Pulse Oximetry 92 L 96 97 06/18/18 21:10 06/18/18 22:00 06/18/18 23:00 Temperature Pulse Rate 82 67 66 Respiratory Rate 32 H 17 18 Blood Pressure 141/95 H Pulse Oximetry 99 93 L 91 L 06/18/18 23:51 06/19/18 00:00 06/19/18 00:28 Temperature 98.8 F Pulse Rate 114 H 89 82 Respiratory Rate 22 23 16 Blood Pressure 142/81 H Pulse Oximetry 98 96 98 06/19/18 01:00 06/19/18 02:00 06/19/18 02:14 Temperature Pulse Rate 77 98 H 84 Respiratory Rate 20 23 26 H Blood Pressure Pulse Oximetry 90 L 06/19/18 03:00 06/19/18 03:51 06/19/18 04:00 Temperature 98.4 F Pulse Rate 74 73 72 Respiratory Rate 33 H 35 H 37 H Blood Pressure 131/62 Pulse Oximetry 06/19/18 04:58 06/19/18 05:00 06/19/18 06:00 Temperature Pulse Rate 106 H 98 H 97 H Respiratory Rate 22 23 23 Blood Pressure Pulse Oximetry Intake & Output 06/18/18 06/19/18 06/19/18 18:59 06:59 18:59 Intake Total 1230 / 1230 920 / 920 Output Total 400 / 400 Balance 830 / 830 920 / 920 Weight 54.5 kg Intake: IV 550 / 550 200 / 200 NS Inj 1,000 ML @ 100 mls/hr IV 300 / 300 .CONT .Q10H NATALIE Rx#:[id number] Maxipime Inj 2,000 MG In NS Inj 100 / 100 200 / 200 100 ML @ 200 mls/hr IV.SIG Q8H NATALIE Rx#:[id number] Levaquin 750 mg Premix Inj 150 150 / 150 ML @ 100 mls/hr IV.SIG Q24H NATALIE Rx#:[id number] Oral 680 / 680 720 / 720 Output: Urine 400 / 400 Other: # Voids 2 Result Diagrams: 06/19/18 02:45 06/19/18 02:45 Other Results: Microbiology 06/17/18 22:40 Throat Group A Streptococcus Screen (RIKKI) - Final Imaging: Chest X-Ray 06/17/18 22:13 CONCLUSION: Lingular subsegmental atelectasis. Soft Tissue Neck CT 06/18/18 00:06 CONCLUSION: 1. Sinus disease. 2. 1.1 cm right thyroid mass. Chest X-Ray 06/19/18 06:00 CONCLUSION: No acute cardiopulmonary disease. Objective Remarks: GENERAL: This is a 78-year-old female no acute distress on room air SKIN: Warm and dry. HEAD: Atraumatic. Normocephalic. EYES: Pupils equal and round. No scleral icterus. No injection or drainage. ENT: No nasal bleeding or discharge. Mucous membranes pink and moist.. Her voice is not muffled NECK: Trachea midline. No JVD. No stridor CARDIOVASCULAR: Regular rate and rhythm. S1, S2 predose 4. RESPIRATORY: No accessory muscle use. Clear to auscultation. Breath sounds equal bilaterally. GASTROINTESTINAL: Abdomen soft, non-tender, nondistended. Hepatic and splenic margins not palpable. MUSCULOSKELETAL: Extremities without clubbing, cyanosis, or edema. No obvious deformities. NEUROLOGICAL: Awake and alert. No obvious cranial nerve deficits. Motor grossly within normal limits. Five out of 5 muscle strength in the arms and legs. Normal speech. PSYCHIATRIC: Appropriate mood and affect; insight and judgment normal. Assessment and Plan - Assessment and Plan Plan: Neuro/Psych: Acetaminophen 650 p.o. every 6 hours as needed fever Hydrocodone/acetaminophen 5/325 1 tablet every 4 hours as needed 1-5 Morphine sulfate 2 mg IV every 2 hours as needed pain 6 - 10 CV: Elevated troponin Will start on aspirin 81 mg daily. 2D echocardiogram ordered. Noted troponin is downward trending. Resp: Stridor Sore throat Chest x-ray revealed bilateral lower lobe atelectasis CT neck revealed right thyroid mass 1.1 cm otherwise negative. ENT evaluation Continues dexamethasone 4 mg IV every 6 hours Patient has scheduled loratadine 10 mg daily GI: Gastro esophageal reflux disease On omeprazole 20 mg daily home. We will place on famotidine 20 mg IV twice daily here Cardiac liquid diet Docusate sodium/senna 1 tablet twice daily for bowel regimen : No indication for Villareal catheter Endo: 1.1 cm thyroid mass Normal TSH/free T4 Sliding scale insulin with Accu-Cheks to maintain euglycemia every 6 hours while on steroids Renal: Creatinine currently within normal limits Monitor urine output Accurate I's and O's Heme: Leukocytosis No indication for transfusion of blood products at this time. Monitor CBC daily. Follow trends. ID: URI Strep a negative Check respiratory viral panel Currently on levofloxacin FEN: Replace electrolytes as clinically indicated MSK: PT evaluate and treat Access -Utilize peripheral IV. Central line if indicated Prophylaxis -GI -famotidine -DVT -SCD/enoxaparin Level l 2 follow-up. Continue to monitor in ICU until ENT evaluation Evaluated by ENT. No plans recommended outpatient workup. Transfer to [facility] in a.m. 06/20. Okay to transfer out of ICU. Code Status: Full code
[2018-06-19] MEDS: Famotidine PF Inj 20 MG/2 ML Vial IV.PUSH SCH ×2 (08:50→21:07)
[2018-06-19] MEDS: Loratadine 10 MG Tablet PO SCH (08:51)
[2018-06-19] MEDS: Senna/Docusate Sodium 8.6/50 MG Tablet PO SCH ×2 (08:51→21:07)
--- NOTE | 2018-06-19 14:20 | ECHRPT ---
Indication: SHORTNESS OF BREATH CONCLUSIONS Normal left ventricular size. Wall thickness is normal. The left ventricular systolic function is normal with an estimated ejection fraction in the range of 60-65%. No regional wall motion abnormalities are present. Trace mitral valve regurgitation. There is trace tricuspid valve regurgitation. The estimated pulmonary arterial pressure is 31 mmHg. BP: / HR: Rhythm: Sinus MEASUREMENTS (Male / Female) Normal Values Technical Quality:Fair 2D ECHO LV Diastolic Diameter PLAX 4.2 cm 4.2 - 5.9 / 3.9 - 5.3 cm LV Systolic Diameter PLAX 3.0 cm IVS Diastolic Thickness 0.8 cm 0.6 - 1.0 / 0.6 - 0.9 cm LVPW Diastolic Thickness 0.8 cm 0.6 - 1.0 / 0.6 - 0.9 cm LV Relative Wall Thickness 0.4 RV Internal Dim ED PLAX 2.3 cm LVOT Diameter 1.8 cm Aortic Root Diameter 2.7 cm LA Systolic Diameter LX 3.1 cm 3.0 - 4.0 / 2.7 - 3.8 cm M-MODE AV Cusp Separation MM 1.7 cm DOPPLER AV Peak Velocity 159.0 cm/s AV Peak Gradient 10.1 mmHg AV Mean Gradient 6.0 mmHg AV Velocity Time Integral 30.2 cm LVOT Peak Velocity 102.0 cm/s LVOT Peak Gradient 4.2 mmHg LVOT Velocity Time Integral 18.8 cm AV Area Cont Eq vti 1.6 cm AV Area Cont Eq pk 1.6 cm Mitral E Point Velocity 41.7 cm/s Mitral A Point Velocity 91.8 cm/s Mitral E to A Ratio 0.5 LV E' Lateral Velocity 9.6 cm/s Mitral E to LV E' Lateral Ratio 4.4 LV E' Septal Velocity 8.4 cm/s Mitral E to LV E' Septal Ratio 5.0 TR Peak Velocity 231.0 cm/s TR Peak Gradient 21.3 mmHg Right Atrial Pressure 10.0 mmHg Pulmonary Artery Systolic Pressu 31.3 mmHg Right Ventricular Systolic Press 31.3 mmHg PV Peak Velocity 76.7 cm/s PV Peak Gradient 2.4 mmHg FINDINGS LEFT VENTRICLE Normal left ventricular size. Wall thickness is normal. The left ventricular systolic function is normal with an estimated ejection fraction in the range of 60-65%. No regional wall motion abnormalities are present. RIGHT VENTRICLE Normal right ventricular size and systolic function. LEFT ATRIUM The left atrial size is normal. RIGHT ATRIUM The right atrial size is normal. ATRIAL SEPTUM The interatrial septum not well visualized. AORTA The aortic root and proximal ascending aorta are not well visualized. MITRAL VALVE Trace mitral valve regurgitation. AORTIC VALVE Trileaflet aortic valve. No aortic valve stenosis or regurgitation. TRICUSPID VALVE There is trace tricuspid valve regurgitation. The estimated pulmonary arterial pressure is 31 mmHg. PULMONARY VALVE No pulmonary valve regurgitation or stenosis. VESSELS The inferior vena cava is normal in size. PERICARDIUM No pericardial effusion. Colton Carver MD (Electronically Signed) Final Date:19 June 2018 14:20
--- NOTE | 2018-06-19 18:56 | MB ---
cc: Dominic Eric MD DATE: 06/19/2018 CHIEF COMPLAINT: Shortness of breath. HISTORY OF PRESENT ILLNESS: This is a 78-year-old female with a history of worsening intermittent stridor and coughing that is exacerbated by talking. The patient reports that it is very intermittent, and she does well for long periods of time, and then she starts to talk or cough, and she gets very short of breath. She reports that she has had this worked up in the past, has suffered from this for over 30 years, has had a full workup before where she, from the best of which she is saying, has had a videostroboscopy exam by an ENT doctor who told her vocal cords do not move correctly and is kind of a dysfunction. She does not know if they said vocal cord dysfunction or spasmodic dysphonia. She is unsure exactly what terminology they used. She is able to communicate this through talking today with no evidence of stridor or stertor, and she is resting comfortably in bed. PAST MEDICAL HISTORY: Significant for severe gastroesophageal reflux disease. PAST SURGICAL HISTORY: Significant for tubal ligation, cholecystectomy, and a previous tonsillectomy. SOCIAL HISTORY: No tobacco, no substance use, occasional ethanol use. PHYSICAL EXAMINATION: GENERAL: The patient is alert and oriented x3, in no acute distress, is afebrile. VITAL SIGNS: Stable. Flexible laryngoscopy at bedside today shows bilateral true vocal cords are mobile. There is no mass, lesions, or ulcerations. The airway is widely patent. She has no obvious signs of vocal cord dysfunction. Neck reveals no palpable lymphadenopathy. CT scan of the neck reviewed shows some mild sinus disease and a 1.1 cm right thyroid mass. ASSESSMENT AND PLAN: The patient with some vocal cord dysfunction, how severe is unable to be determined. The patient would benefit from full outpatient workup with a videostroboscopy exam and further ENT workup. She is not from the local area and apparently has an ENT in [place]. For the interim, she could likely benefit from an ultrasound of her thyroid to further work up the 1.1 cm mass in her thyroid. However, I have a feeling this has nothing to do with her current situation as both vocal cords are normal and there is no impingement that is obvious from a 1.1 cm right thyroid mass. Therefore, at this time I would recommend full workup as an outpatient with videostroboscopy exam that can be done at her ENT in [place] or we can refer her to a satellite television installer in the [place] area as no one in the local area has the ability to do videostroboscopy exam. Thank you for this consultation. MD DASH Schmidt/papi/kathleen , 06:10 PM , 06:18 PM
[2018-06-19] MEDS: Benzocaine/Menthol 15 MG/3.6 MG SF Lozenge BUCCAL PRN (21:07)
[2018-06-20] MEDS: Sod Chloride 0.9% Inj 1,000 ML IV.CONT SCH ×2 (00:32→10:32)
[2018-06-20 01:43] VITALS: TEMP 98.4; O2SAT 99
[2018-06-20] MEDS: Insulin NovoLOG Aspart Correctional Sugar Inj SQ SCH ×3 (03:36→13:43)
[2018-06-20] MEDS: Enoxaparin Inj 40 MG/0.4 ML Syringe SQ SCH (03:37)
[2018-06-20 06:35] VITALS: BP 129/61
[2018-06-20 08:37] VITALS: PULSE 92; RESP 18
[2018-06-20] MEDS ORDERED: Regadenoson Inj 0.4 MG/5 ML Syringe IV.PUSH ONE (08:59)
[2018-06-20] MEDS: Senna/Docusate Sodium 8.6/50 MG Tablet PO SCH (10:31)
[2018-06-20] MEDS: Loratadine 10 MG Tablet PO SCH (10:31)
[2018-06-20] MEDS: Famotidine PF Inj 20 MG/2 ML Vial IV.PUSH SCH (10:31)
[2018-06-20 10:56] LABS: Baso % (Auto) 0.3 % (0.0-2.0); Hematocrit 42.4 % (35.0-46.0); Lymph # (Auto) 0.9 th/mm3 (1.0-4.8); Lymph % (Auto) 5.5 % (9.0-44.0); Mean Corpuscular HGB Conc 33.1 % (32.0-36.0); Mean Corpuscular Hemoglobin 30.3 pg (27.0-34.0); Mean Corpuscular Volume 91.7 fL (80.0-100.0); Mean Platelet Volume 8.2 fL (7.0-11.0); Mono # (Auto) 0.8 th/mm3 (0.0-0.9); Mono % (Auto) 4.6 % (0.0-8.0); Neut # (Auto) 14.6 th/mm3 (1.8-7.7); Neut % (Auto) 89.6 % (16.0-70.0); Platelet Count 420 th/mm3 (150-450); Red Blood Count 4.63 mil/mm3 (4.00-5.30); Red Cell Distribution Width 14.4 % (11.6-17.2); White Blood Count 16.3 th/mm3 (4.0-11.0)
[2018-06-20 11:16] LABS: Calcium 8.9 mg/dL (8.5-10.1); Carbon Dioxide 26.5 meq/L (21.0-32.0); Potassium 3.8 meq/L (3.5-5.1)
--- NOTE | 2018-06-20 12:56 | NM ---
EXAM DATE: 06/20/2018 12:48 PM EST AGE/SEX: 78 years / Female INDICATIONS:Angina. . CLINICAL DATA: This is the patient's initial encounter. Patient reports that signs and symptoms have been present for 1 day and indicates a pain score of 2/10. MEDICAL/SURGICAL HISTORY: Gastroesophageal reflux disease. Tubal ligation. Cholecystectomy. COMPARISON: No prior exams available for comparison. DOSE: 8.3 mCi Tc 99m Myoview at rest 25.8 mCi [id number] at stress 0.4 mg Lexiscan STRESS SYMPTOMS: None. EJECTION FRACTION: >70 % TECHNIQUE: The patient underwent pharmacologic stress with infusion of prescribed dose. Continuous ECG tracing was monitored during stress. Gated SPECT imaging was performed after stress and conventi onal SPECT imaging was performed at rest. The examination was performed on a SPECT/CT scanner, both attenuation and non-corrected datasets were reviewed. FINDINGS: Distribution: The maximum perfused segment at stress is in the anterolateral wall. Perfusion Study: The pattern of perfusion at stress is within normal limits except for breast atten uation artifact low anterior wall . Gated Study: There are intact wall motion and wall thickening without hypokinetic or dyskinetic segm ents. The ejection fraction is calculated at >70%. RISK CATEGORY: Low (<1% Annual Mortality Rate) CONCLUSION: 1. Negative examination. Electronically signed by: Amandeep Davis MD Board Certified Radiologist 06/20/2018 12:55 PM EST
--- NOTE | 2018-06-20 13:21 | P.DS ---
Date of admission: 06/18/18 02:34 Primary care physician: No Primary Care Physician Brief History from admission: 78-year-old female with a history of GERD who presents with a 2-day history of worsening intermittent will be breathing in. History is provided by the patient her condition is exacerbated by talking. history is limited by being obtained through writing and whispering. Patient says that she had an upper respiratory illness which was getting better, however she subsequently got a cough and episodes of difficulty breathing in. She reports she has had similar symptoms in the past. She denies any chest pain. She denies any shortness of breath when she is not having these episodes. She denies any fevers or chills, and indicates that she has gotten better from her previous cold DS: Medications - Discharge Medications Prescriptions: dexamethasone [DexPak 10 day] 0 package PO PER PKG DIR #1 ea levofloxacin 750 mg PO DAILY #6 tab loratadine 10 mg PO DAILY #30 tab DS: Summary Hospital Course: Patient was admitted, started on IV steroids and antibiotics. Was transferred to the ICU for closer monitoring for possible airway compromise. ENT was consulted, suspected vocal cord dysfunction. Patient's respiratory status is stabilized was tolerating p.o. intake well. She no longer had a stridor, had occasional very intermittent voice hoarseness. Was recommended to follow-up ENT outpatient for possible video stroboscopy as well as follow-up for a thyroid nodule which is an incidental finding on her imaging. Due to elevated troponins upon initial presentation which was most likely secondary to hypoxia secondary to laryngeal spasm, a d-dimer and myocardial ischemia were obtained both of which were unremarkable. Patient has been maximal benefit from hospitalization is clinically stable for discharge. - Time Spent with Patient Total time spent providing and/or coordinating discharge services: Less than 30 minutes - Quality: VTE Deep Vein Thrombosis/Pulmonary Embolism Present on Admission: No Exam Vital signs: Vital Signs 06/19/18 14:00 06/19/18 14:08 06/19/18 14:12 Temperature 98.7 F Pulse Rate 99 H 108 H 108 H Respiratory Rate 28 H 41 H 26 H Blood Pressure 149/70 H Pulse Oximetry 06/19/18 19:57 06/19/18 21:19 06/19/18 21:20 Temperature Pulse Rate 100 H 96 H Respiratory Rate 20 Blood Pressure 161/70 H Pulse Oximetry 99 06/19/18 22:00 06/19/18 23:06 06/19/18 23:08 Temperature Pulse Rate 81 81 Respiratory Rate 20 17 Blood Pressure Pulse Oximetry 91 L 96 06/20/18 00:00 06/20/18 03:21 06/20/18 04:00 Temperature 98.4 F 98.4 F Pulse Rate 84 84 Respiratory Rate 18 16 16 Blood Pressure 134/75 129/61 Pulse Oximetry 99 99 06/20/18 08:36 Temperature Pulse Rate 92 H Respiratory Rate 18 Blood Pressure Pulse Oximetry Intake & Output 06/19/18 06/20/18 06/20/18 18:59 06:59 18:59 Intake Total 250 / 250 920 / 920 Balance 250 / 250 920 / 920 Weight 54.5 kg Intake: IV 250 / 250 200 / 200 Maxipime Inj 2,000 MG In NS Inj 100 / 100 200 / 200 100 ML @ 200 mls/hr IV.SIG Q8H NATALIE Rx#:[id number] Levaquin 750 mg Premix Inj 150 150 / 150 ML @ 100 mls/hr IV.SIG Q24H NATALIE Rx#:[id number] Oral 720 / 720 Other: # Voids 6 2 Date of Last Bowel Movement 06/18/18 06/20/18 06/20/18 # Bowel Movements 0 0 Narrative: Good sounding voice which occasionally will get intermittently hoarse for a few seconds Clear lungs bilaterally, unlabored breathing Heart sounds regular rhythm, no murmurs No lower extremity edema Awake and alert, no acute distress Results Procedures completed during hospitalization: . Labs on day of discharge: Labs from last 24 hours 06/20/18 06/20/18 06/20/18 10:36 10:36 10:36 WBC 16.3 H RBC 4.63 Hgb 14.0 Hct 42.4 MCV 91.7 MCH 30.3 MCHC 33.1 RDW 14.4 Plt Count 420 MPV 8.2 Prelim Diff (Auto) Slide review pending Neut % (Auto) 89.6 H Lymph % (Auto) 5.5 L [place] % (Auto) 4.6 Eos % (Auto) 0.0 Baso % (Auto) 0.3 Neut # (Auto) 14.6 H Lymph # (Auto) 0.9 L [place] # (Auto) 0.8 Eos # (Auto) 0.0 Baso # (Auto) 0.0 WBC Differential . Diff Scan Auto diff confirmed Differential Comment . D-Dimer Quant (PE/DVT) 0.23 Sodium 140 Potassium 3.8 Chloride 105 Carbon Dioxide 26.5 Anion Gap 9 BUN 16 Creatinine 0.82 Estimated GFR 68 L POC Glucose Random Glucose 153 H Calcium 8.9 06/20/18 06/19/18 03:32 16:43 WBC RBC Hgb Hct MCV MCH MCHC RDW Plt Count MPV Prelim Diff (Auto) Neut % (Auto) Lymph % (Auto) [place] % (Auto) Eos % (Auto) Baso % (Auto) Neut # (Auto) Lymph # (Auto) [place] # (Auto) Eos # (Auto) Baso # (Auto) WBC Differential Diff Scan Differential Comment D-Dimer Quant (PE/DVT) Sodium Potassium Chloride Carbon Dioxide Anion Gap BUN Creatinine Estimated GFR POC Glucose 151 H 118 H Random Glucose Calcium - Impressions ITS Impressions Soft Tissue Neck CT 06/18/18 00:06 CONCLUSION: 1. Sinus disease. 2. 1.1 cm right thyroid mass. Chest X-Ray 06/19/18 06:00 CONCLUSION: No acute cardiopulmonary disease. Myocardial Perfusion Scan Nuc Med 06/20/18 00:00 CONCLUSION: 1. Negative examination. Discharge Plan - Discharge Disposition Patient Disposition: Discharge Home - Discharge Condition Condition: Stable - Discharge Order Discharge Orders: Discharge Order (Routine); Ordered 06/20/18 Ordered By: Julián Magana - Physicians Team Primary Care Provider: Primary Care Earnestine Harris Attending Provider: Julián Magana Other Providers: Dominic Eric MD ; Yoel Ruby MD ; Julián Magana MD
== END 2018-06-20 15:01 | disposition home or self-care (01) ==
LOC: PHEDA 21:56 → PHED 21:56 → PH3 06-18 05:00 → N03 06-18 18:29
PROVIDERS: ADMIT Hospitalist; ATTEND Hospitalist
DX: R09.02 Hypoxemia; Z79.899 Other long term (current) drug therapy; K21.9 Gastro-esophageal reflux disease without esophagitis; J38.5 Laryngeal spasm; Z88.0 Allergy status to penicillin; J38.3 Other diseases of vocal cords; Z98.51 Tubal ligation status; R74.8 Abnormal levels of other serum enzymes; J98.11 Atelectasis; R49.0 Dysphonia; R94.31 Abnormal electrocardiogram [ECG] [EKG]; Z88.2 Allergy status to sulfonamides; E04.1 Nontoxic single thyroid nodule; Z90.49 Acquired absence of other specified parts of digestive tract
CPT/HCPCS: 36600; 70491; 71010; 71020; 71045; 71046; 78452; 80048; 80053; 82805; 82948; 82962; 83735; 84100; 84439; 84443; 84484; 85025; 85379; 85610; 85730; 87081; 87880; 90761; 90774; 93005; 93017; 93306; 94150; 94640; 94664; 94665; 96361; 96365; 96366; 96367; 96368; 96372; 96374; 96375; 96376; 97161; 99285; A9502; C8952; C9113; G0378; G8987; G8988; J0692; J1100; J1650; J1815; J1956; J2785; J2920; J7030; Q9967